=== PATIENT | male | born 1945 ===

== ENCOUNTER 2020-08-11 06:18 | Day surgery (SDC) | payer OTHER ==
[~2020-08-11 06:18] MED LIST: SYNTHROID50 MCG PO
== END 2020-08-11 13:55 | disposition home or self-care (01) ==
LOC: CIR.AMB 06:18
PROVIDERS: ATTEND Orthopaedic Surgery Hand Surgery
DX: M66.242 Spontaneous rupture of extensor tendons, left hand (principal); Z20.828 Contact with and (suspected) exposure to other viral communicable diseases